=== PATIENT | female | born 1955 | race Two or more races ===

== ENCOUNTER 2016-10-25 23:59 | Emergency (ER) | payer SELFPAY ==
[2016-10-26] MEDS ORDERED: ALBUTEROL/IPRATROPIUM 2.5/0.5 MG 3 ML/EACH DOSE ONE (02:16)
--- NOTE | 2016-10-26 09:05 | RAD ---
10/26/2016 8:55 AM CHEST - 2 VIEWS History: Cough and congestion for several days. Comparison: None Findings: Two views of the chest are obtained. The lungs are clear with out effusion or pneumothorax. The cardiomediastinal silhouette is unremarkable.. The osseous structures are intact.. IMPRESSION: No acute intrathoracic process.
== END 2016-10-26 03:26 | disposition home or self-care (01) ==
LOC: ED 23:59
DX: J06.9 Acute upper respiratory infection, unspecified (principal)